=== PATIENT | female | born 1975 | race Caucasian/White ===

== ENCOUNTER 2019-09-23 08:09 | Emergency (ER) | payer BC ==
[2019-09-23] MEDS ORDERED: 0.9 % SODIUM CHLORIDE 1,000 ML BAG IV ONE ×2 (08:13→08:49)
[2019-09-23] MEDS ORDERED: ONDANSETRON HCL IV 4 MG/2 ML VIAL IVP ONE (08:13)
--- NOTE | 2019-09-23 08:20 | Emergency Department Record ---
History of Present Illness - General Chief complaint: Nausea, Vomiting, Diarrhea Stated complaint: LOOSE STOOLS/NAUSEA/VOMITING Time Seen by Provider: 09/23/19 08:12 Source: Patient Mode of Arrival: Ambulatory Limitations: No limitations - History of Present Illness Initial comments: 44 yo female presents with nausea, vomiting and diarrhea. The onset was yesterday. She had several loose stools yesterday but improved today. She has had mostly dry heaves. No fever. She has had some chills. She feels dehydrated with little intake over the last 24 hours. She is on Coumadin for a DVT/PE from 2002. No cough, sore throat, congestion. NO chest pain or shortness of breath. MD complaint: Diarrhea, Nausea, Vomiting -: Days(s) Description of Vomiting: Watery Description of Diarrhea: Water Location: Other (No pain) Radiation: None Severity: Moderate Quality: Cramping Consistency: Intermittent Improves with: None Worsens with: Eating Context: Other Associated Symptoms: Headaches, Loss of appetite, Malaise, Myalgias, N ausea/vomiting - Related Data Previous Rx's Medication Instructions Recorded Ondansetron [Zofran Odt] 4 mg PO Q6H #15 tab.rapdis 09/23/19 Allergies Allergy/AdvReac Type Severity Reaction Status Date / Time erythromycin base Allergy HIVES Verified 02/29/16 22:57 [Erythromycin Base] morphine Allergy BEHAVIORAL Verified 02/29/16 22:57 CHANGES latex AdvReac HIVES Verified 02/29/16 22:57 Review of Systems Constitutional: Reports: Chills, Malaise. Denies: Fever Eyes: Denies: Eye discharge ENT: Denies: Congestion, Ear pain, Epistaxis, Throat pain Respiratory: Denies: Cough, Dyspnea, Hemoptysis, Wheezes Cardiovascular: Denies: Chest pain, Edema, Palpitations, Syncope Endocrine: Reports: Fatigue. Denies: Polydipsia, Polyuria Gastrointestinal: Reports: Diarrhea, Nausea, Vomiting. Denies: Abdominal pain, Constipation, Hematemesis, Hematochezia, Melena Genitourinary: Denies: Dysuria, Urgency Musculoskeletal: Denies: Arthralgia, Back pain, Joint swelling, Myalgia, Neck pain Skin: Denies: Bruising, Change in color, Rash Neurological: Reports: Headache Psychiatric: Denies: Anxiety Hematological/Lymphatic: Denies: Easy bleeding, Easy bruising Past Medical History - SOCIAL HISTORY Smoking Status: Never smoker - RESPIRATORY Hx Respiratory Disorders: Yes Hx Asthma: Yes - CARDIOVASCULAR Hx Cardio Disorders: No - NEURO Hx Neuro Disorders: No - GI Hx GI Disorders: No - Hx Genitourinary Disorders: No - ENDOCRINE Hx Endocrine Disorders: No Hx Diabetes: No Hx Thyroid Disease: No - MUSCULOSKELETAL Hx Musculoskeletal Disorders: No - PSYCH Hx Psych Problems: No - HEMATOLOGY/ONCOLOGY Hx Hematology/Oncology Disorders: Yes Hx Clotting Problems: Yes Family Medical History Hx Heart Disease: Father Hx Resp Disorders: Children Physical Exam - General General Appearance: Alert, Oriented x3, Cooperative, No acute distress Limitations: No limitations - Head Head exam: Atraumatic, Normal inspection - Eye Eye exam: Normal appearance, PERRL. negative: Conjunctival injection, Scleral icterus - ENT ENT exam: Normal exam Ear exam: Normal external inspection Nasal Exam: Normal inspection Mouth exam: Normal external inspection - Neck Neck exam: Normal inspection, Full ROM - Respiratory Respiratory exam: Normal lung sounds bilaterally. negative: Accessory muscle use, Decreased breath sounds, Prolonged expiratory, Respiratory distress, Rhonchi, Stridor, Wheezes - Cardiovascular Cardiovascular Exam: Regular rate, Normal rhythm, Normal heart sounds - GI/Abdominal GI/Abdominal exam: Soft. negative: Distended, Guarding, Tenderness - Rectal Rectal exam: Deferred - exam: Deferred - Extremities Extremities exam: Normal inspection. negative: Calf tenderness, Pedal edema, Tenderness - Back Back exam: Denies: CVA tenderness (R), CVA tenderness (L) - Neurological Neurological exam: Alert, Oriented X3 - Psychiatric Psychiatric exam: Normal affect, Normal mood. negative: Agitated, Anxious - Skin Skin exam: Dry, Intact, Normal color, Warm Course - Reevaluation(s) Reevaluation #1: 09/23/19 08:46 The labs results were reviewed There are no acute significant abnormalities of the CBC There are no acute significant abnormalities of the CMP 09/23/19 08:46 INR is 1.8 Medical Decision Making - Lab Data Result diagrams: 09/23/19 08:20 02 08:20 Disposition Disposition: Discharge Clinical Impression: Vomiting and diarrhea Disposition: Home, Self-Care Condition: (1) Good Instructions: Gastroenteritis (ED), Acute Nausea and Vomiting (ED) Additional Instructions: Review this ER visit and the tests performed with your family doctor Call your doctor for the next available follow up appointment Return to the ER for a recheck immediately if worse, any new concerns or questions Take the prescriptions provided as directed Prescriptions: Ondansetron [Zofran Odt] 4 mg PO Q6H #15 tab.rapdis Forms: Patient Portal Access Time of Disposition: 09:25 Quality - Quality Measures Quality Measures: N/A - Blood Pressure Screening Does Patient Have Any of the Following: No Blood Pressure Classification: Normal BP Reading Systolic Measurement: 108 Diastolic Measurement: 68 Screening for High Blood Pressure: < Normal BP, F/U Not Required > [G8783]
[2019-09-23 08:37] LABS: ABSOLUTE NEUTROPHIL COUNT 7.65; BASO % 0.2 % (0-6); EOS % 0.8 % (0-6); HEMATOCRIT 44.8 % (35.0-47.0); HEMOGLOBIN 14.4 gm/dl (11.6-16.0); MEAN CELL VOLUME 93.3 fl (81-97); MEAN CORPUSCULAR HGB CONC 32.1 g/dl (32-36); MEAN PLATELET VOLUME 9.6 fl (7.4-10.4); MONO % 4.6 % (0-9); PLATELET COUNT 235 K/uL (130-400); RED CELL DISTRIBUTION WIDTH 13.8 % (11.5-14.5); WHITE BLOOD COUNT W/O DIFF 8.6 K/uL (4.2-12.2)
[2019-09-23 08:39] LABS: BLOOD UREA NITROGEN 18 mg/dL (6-20); CREATININE 0.9 mg/dL (0.5-0.9); EST GLOMERULAR FILTRATION RATE > 60 mL/min
[2019-09-23 08:40] LABS: TOTAL PROTEIN 6.6 g/dL (6.6-8.7)
[2019-09-23 08:41] LABS: INR 1.8; PARTIAL THROMBOPLASTIN TIME 30.4 SECONDS (24.5-39.1)
[2019-09-23 08:42] LABS: GLUCOSE,RANDOM 124 mg/dL (74-109)
[2019-09-23 08:45] LABS: ALB/GLOB RATIO 1.5 (1.1-1.8); ALKALINE PHOSPHATASE 31 U/L (35-104); ALT/SGPT 19 U/L (<33); AST/SGOT 25 U/L (10.0-35.0)
[2019-09-23 09:10] LABS: PLATELET ESTIMATE NORMAL (NORMAL)
[2019-09-23 09:11] LABS: TOXIC GRANULATION 1+
== END 2019-09-23 09:57 | disposition home or self-care (01) ==
LOC: ER 08:09
DX: R11.2 Nausea with vomiting, unspecified (principal); R19.7 Diarrhea, unspecified
CPT/HCPCS: 80053; 85027; 85610; 85730; 96361; 96374; 99284; J2405; J7030